=== PATIENT | female | born 1935 | race Caucasian/White ===

== ENCOUNTER 2016-08-27 18:22 | Emergency (ER) | payer MEDICARE, OTHER ==
--- NOTE | 2016-08-27 18:33 | EDPRACDOC ---
- General Information Stated Complaint: N/V Time Seen by Provider: 08/27/16 18:31 Home Medications: Home Medications Atorvastatin Calcium [Lipitor] 40 mg PO DAILY 01/02/15 Acetaminophen [Children's Acetaminophen] 10 ml PO Q4H PRN 08/27/16 Cephalexin Monohydrate [Keflex] 500 mg PO Q6H #28 cap 08/27/16 Chlorhexidine Gluconate [Periogard] 15 ml MM BID 08/27/16 Donepezil HCl 10 mg PO DAILY 08/27/16 Guaifenesin [Robitussin] 10 ml PO Q4H PRN 08/27/16 Lactobacillus Casei/Folic Acid [Restora Rx Capsule] 1 cap PO DAILY 08/27/16 Oxycodone HCl [Oxycodone Immediate Release] 10 mg PO QID 08/27/16 Pentoxifylline [Trental] 400 mg PO TIDWM 08/27/16 Phosp Acid/Dextrose/Fructose [Emetrol Oral Solution] 15 ml PO DIR PRN Vitamin E 400 unit PO BID 08/27/16 Allergies/Adverse Reactions: Allergies Allergy/AdvReac Type Severity Reaction Status Date / Time peach Allergy Edema-Local Verified 08/27/16 18:39 ized Penicillins Allergy Itching Verified 08/27/16 18:39 - History of Present Illness Onset: 10 days HPI: PT FROM [facility] WITH COMPLAINTS OF RIGHT JAW SWELLING, N/V X 10 DAYS, FACILITY STAFF STATES THAT HER JAW IS MORE SWOLLEN AND THEY WERE CONCERNED IT MAY BE "CRACKED" FROM THE VOMITING. PT STATES SHE HAS A CONDITION THAT CAUSES HER JAW TO DETERIORATE AND IT IS "PAPER THIN", PT HERSELF HAS NO COMPLAINTS, DENIES ABD PAIN, HAS HAD "DIARRHEA" WELL BUT NONE TODAY. PT DENIES CP, SOBR , FEVER, CHILLS. Symptoms Occured: Reports: Spontaneous Duration: Reports: Intermittent Emesis: Reports: Food Particles Recent: Denies: Travel, Contact Exposure, Ingestion of ETOH, Ingestion of spoiled food, None, O Pain Severity: None History of: Denies: Abdominal Surgery, UTI, Ectopic, PID, Urolithiasis, Similar Pain (dx) Relevant History of: Denies: Abdominal Surgery, Diabetes, Contact Exposure, Hydrocephalus, HIV, Immunosuppression, Irritable Bowel Disease, Cystic Fibrosis , Lactose Intolerance, None, O Associated Signs & Symptoms: Reports: Nausea, Vomiting, Diarrhea. Denies: Frequency, Vaginal Bleeding, Hematemesis, Anorexia, Melena, Dysuria, Fever, Urgency, Hematuria, Chills, Vaginal Discharge Oral Intake: Normal Urinary Output: Normal ED Past Medical History - History Reviewed Yes Nurses notes reviewed and agree except as marked - Patient Medical History Neurological History: Reports: Dementia Cardiac History: Reports: Hypertension (in the past; no longer treated), Hypercholesterolemia GI/ History: Reports: Pancreatitis ([address] Newell.) Musculoskeletal History: Reports: Arthritis, Osteoarthritis (and Osteoporosis. Degenerative disc disease.) Psychological History: Denies: Substance Use Disorder Surgical History: Reports: Cholecystectomy, Other (Procedure, possibly ERCP, [address] Newell. Gum surgery.) - Family Medical History Reports: Diabetes (Brother), Cancer (Father: prostate cancer), Cardiac Disorders (Mother had CHF but no [place].) - Social Medical History Smoking Status: Former smoker Social History: Denies: Substance Use Disorder ETOH: None Substance Abuse: None Lives In: Assisted Living EDM Review of Systems - Review of Systems Constitutional: negative: Chills, Fever, Fatigue, Weakness Eyes: negative: Blurred Vision, Double Vision Ears: negative: Drainage Throat: negative: Pain Nose: negative: Congestion, Discharge Mouth: Pain (RIGTH JAW) Respiratory: negative: Cough, Shortness of Breath, Wheezing Cardiovascular: negative: Chest Pain, Palpitations Gastrointestinal: Diarrhea, Nausea, Vomiting. negative: Constipation, Pain Genitourinary: negative: Dysuria, Frequency Neurological: negative: Dizziness, Headache, Numbness, Weakness Musculoskeletal: No Symptoms Reported Integumentary: No Symptoms Reported - Physical Exam Constitutional: Alert (Awake), No apparent distress Oriented to: Time, Person, Place Last recorded Vital Signs: Oxygen Pulse Oxygen Saturation O2 Device Oxygen Flow Rate Fraction of Inspired Oxygen ( FIO2) - HEENT Head: Normal ( normocephalic) Eye Exam: Normal (PERRL, EOMI, Sclera white) Oropharynx: Other (SWELLING NOTED ALONG RIGHT JAW) Tympanic Membrane: Normal ENT EAC: Normal TMJ: Normal Nose: No Symptoms Reported (septum midline) Neck: Normal (FROM, trachea at midline) - Respiratory/Cardiovascular Respiratory: Normal - CTA (BBS clear to auscultation without adventitious sounds ) Cardiovascular: Normal (RRR without murmur, gallop or rub) - GI Auscultation: Normal (NABS) Palpation: Normal (Soft,No rebound or guarding, non distended) Tenderness: Diffuse, Mild. negative: Guarding, Rebound, Rigidity Santos's Sign: Negative - Musculoskeletal Back: Normal (Non-Tender) Extremities: Normal (Normal tone, Pulses 2+ No cyanosis or edema, FROM) - Integumentary Skin: Normal, Warm, Dry Lymphatics: Normal (no adenopathy) - Neurologic Memory Impaired: Normal Motor Function: Normal (Normal tone, Pulses 2+ No cyanosis or edema, FROM) Cranial Nerve: Normal (CN II-X11 intact sensation, strength 5/5) Cerebellar: Normal Mood Description: Normal Perception: Normal - Differential Diagnosis Bowel obstruction, Dehydration, Gastritis, Gastroenteritis - Results 08/27/16 19:40 08/27/16 19:40 08/27/16 20:50 Laboratory Results - last 24 hr 08/27/16 08/27/16 08/27/16 19:20 19:40 19:40 WBC 10.4 RBC 4.30 Hgb 12.0 Hct 37.0 MCV 86 MCH 28.0 MCHC 32.6 L RDW 14.3 Plt Count 290 MPV 7.3 L Neut % (Auto) 85.2 H Lymph % (Auto) 9.0 L [place] % (Auto) 4.9 Eos % (Auto) 0.5 Baso % (Auto) 0.4 Absolute Neuts (auto) 8.84 H Absolute Lymphs (auto) 0.94 Sodium 136 L Potassium 3.7 Chloride 100 Carbon Dioxide 26 Anion Gap 14 BUN 10 Creatinine 0.70 Estimated GFR (MDRD) > 60 Glucose 120 H Calculated Osmolality 262 L Calcium 9.1 Corrected Calcium 9.3 Total Bilirubin 0.5 AST 135 H ALT 115 H Alkaline Phosphatase 252 H Total Protein 7.2 Albumin 3.8 Lipase 300 Urine Color Yellow Urine Clarity Clear Urine pH 5.0 Ur Specific [place] 1.005 Urine Protein 1+ H Urine Glucose (UA) Neg Urine Ketones Neg Urine Occult Blood Neg Urine Nitrite Neg Urine Bilirubin Neg Urine Urobilinogen <2.0 Ur Leukocyte Esterase Neg Urine WBC 2-5 Ur Epithelial Cells Occ Hyaline Casts 2-5 H Urine Mucus Occ - Diagnostic Imaging CT FACE Image interpreted by: Radiologist CT MAXILLOFACIAL WITHOUT CONTRAST TECHNIQUE: Multidetector CT imaging of the maxillofacial structures was performed. Multiplanar CT image reconstructions were also generated. A small metallic BB was placed on the right sabianist in order to reliably differentiate right from left. COMPARISON: CT neck 08/30/2011. FINDINGS: There is a heterogeneous destructive bone process demonstrated involving the right mandible and extending from the angle of mandible to the midline. There is severe bone loss with surrounding soft tissue mass or soft tissue swelling. No discrete fluid collection is identified. No definite abscess is identified. There are mildly enlarged lymph nodes in the right angle of mandible and submental regions. No changes are present in this area on the previous CT neck from 08/30/2011. This area was not included on a prior CT head in the interval. This could represent severe osteomyelitis with surrounding myositis/soft tissue infection or it could represent an infiltrating bone tumor or metastasis. The patient is edentulous. The paranasal sinuses are clear. Mastoid air cells are not opacified. Temporomandibular joints appear intact. Additional visualized bony structures appear intact. Calcification in the cervical carotid arteries. Visualized salivary glands appear symmetrical. Pharyngeal, hypopharyngeal, and laryngeal structures are symmetrical. IMPRESSION: Heterogeneous destructive bone process involving the right mandible with surrounding soft tissue mass or swelling. No discrete abscess identified. Differential diagnosis would include severe osteomyelitis with surrounding myositis/soft tissue infection or it could represent an infiltrating bone tumor or metastasis. AAS Image interpreted by: Radiologist HOLLY ABDOMEN ACUTE W/ 1V CHEST COMPARISON: None. FINDINGS: The lungs are clear wiithout focal pneumonia, edema, pneumothorax or pleural effusion. The cardio pericardial silhouette is enlarged. The visualized bony structures of the thorax are intact. Upright film shows no evidence for intraperitoneal free air. There is no evidence for gaseous bowel dilation to suggest obstruction. No unexpected abdominal pelvic calcification. Degenerative changes are seen in the lumbar spine with evidence of lumbar spine compression fracture. IMPRESSION: Negative abdominal radiographs. No acute cardiopulmonary disease. Decision Time to Discharge: 20:50 - Departure Disposition: Home Condition: Stable Final Diagnosis: RIGHT JAW PAIN Instructions: Narcotic Pain Management (ED) Education/Counseling Given To: Patient Education/Counseling Given Regarding: Diagnosis, Treatment, Prognosis, Follow Up Referrals: Pablo Vega DO [Staff Physician] - One Week Prescriptions: New Cephalexin Monohydrate [Keflex] 500 mg PO Q6H #28 cap Continue Atorvastatin Calcium [Lipitor] 40 mg PO DAILY Acetaminophen [Children's Acetaminophen] 10 ml PO Q4H PRN PRN Reason: Pain Vitamin E 400 unit PO BID Phosp Acid/Dextrose/Fructose [Emetrol Oral Solution] 15 ml PO DIR PRN PRN Reason: Nausea Pentoxifylline [Trental] 400 mg PO TIDWM Oxycodone HCl [Oxycodone Immediate Release] 10 mg PO QID Lactobacillus Casei/Folic Acid [Restora Rx Capsule] 1 cap PO DAILY Donepezil HCl 10 mg PO DAILY Chlorhexidine Gluconate [Periogard] 15 ml MM BID Guaifenesin [Robitussin] 10 ml PO Q4H PRN PRN Reason: Cough Additional Instructions: CONTINUE YOUR USUAL MEDICATIONS BEFORE, RETURN TO THE ED FOR ANY WORSENING SYMPTOMS OR CONCERNS.
[2016-08-27] MEDS ORDERED: ONDANSETRON HCL 4 MG/2 ML VIAL IV ONE (18:35)
[2016-08-27] MEDS ORDERED: NS 1,000 ML IV ONE (18:35)
[2016-08-27 18:40] VITALS: BMI 26.4
--- NOTE | 2016-08-27 19:18 | DIRPT ---
CLINICAL DATA: Right jaw swelling and vomiting EXAM: DG ABDOMEN ACUTE W/ 1V CHEST COMPARISON: None. FINDINGS: The lungs are clear wiithout focal pneumonia, edema, pneumothorax or pleural effusion. The cardio pericardial silhouette is enlarged. The visualized bony structures of the thorax are intact. Upright film shows no evidence for intraperitoneal free air. There is no evidence for gaseous bowel dilation to suggest obstruction. No unexpected abdominal pelvic calcification. Degenerative changes are seen in the lumbar spine with evidence of lumbar spine compression fracture. IMPRESSION: Negative abdominal radiographs. No acute cardiopulmonary disease. Electronically Signed By: Joni Zaragoza M.D. On: 08/27/2016 19:15
--- NOTE | 2016-08-27 19:19 | DIRPT ---
CLINICAL DATA: Pain and swelling in the right jaw for 10 days. No known injury. Nausea and vomiting 7 days. EXAM: CT MAXILLOFACIAL WITHOUT CONTRAST TECHNIQUE: Multidetector CT imaging of the maxillofacial structures was performed. Multiplanar CT image reconstructions were also generated. A small metallic BB was placed on the right [place] in order to reliably differentiate right from left. COMPARISON: CT neck 08/30/2011. FINDINGS: There is a heterogeneous destructive bone process demonstrated involving the right mandible and extending from the angle of mandible to the midline. There is severe bone loss with surrounding soft tissue mass or soft tissue swelling. No discrete fluid collection is identified. No definite abscess is identified. There are mildly enlarged lymph nodes in the right angle of mandible and submental regions. No changes are present in this area on the previous CT neck from 08/30/2011. This area was not included on a prior CT head in the interval. This could represent severe osteomyelitis with surrounding myositis/soft tissue infection or it could represent an infiltrating bone tumor or metastasis. The patient is edentulous. The paranasal sinuses are clear. Mastoid air cells are not opacified. Temporomandibular joints appear intact. Additional visualized bony structures appear intact. Calcification in the cervical carotid arteries. Visualized salivary glands appear symmetrical. Pharyngeal, hypopharyngeal, and laryngeal structures are symmetrical. IMPRESSION: Heterogeneous destructive bone process involving the right mandible with surrounding soft tissue mass or swelling. No discrete abscess identified. Differential diagnosis would include severe osteomyelitis with surrounding myositis/soft tissue infection or it could represent an infiltrating bone tumor or metastasis. Electronically Signed By: Javi Braun M.D. On: 08/27/2016 19:17
[2016-08-27 19:32] LABS: LEUKOCYTES/URINE NEG (NEGATIVE); NITRITE/URINE NEG (NEGATIVE); URINE OCCULT BLOOD NEG (NEG/TRACE)
[2016-08-27 19:59] LABS: BLOOD UREA NITROGEN 10 MG/DL (7-17); CALC CORRECTED 9.3 MG/DL (8.4-10.2); CALCIUM 9.1 MG/DL (8.4-10.2); CALCULATED OSMOLALITY 262 MOs/Kg (270-290); CHLORIDE 100 mEq/L (98-107); GLUCOSE 120 MG/DL (70-99); SODIUM LEVEL 136 mEq/L (137-146); TOTAL PROTEIN 7.2 G/DL (6.3-8.2)
[2016-08-27] MEDS ORDERED: OXYCODONE HCL 5 MG TABLET PO ONE (20:10)
[2016-08-27 20:28] LABS: AUTOMATED BASOPHIL 0.4 % (0-2); AUTOMATED EOSINOPHIL 0.5 % (0-5); AUTOMATED MONOCYTE 4.9 % (3-10); AUTOMATED NEUTROPHIL 85.2 % (45-76); MPV 7.3 fL (7.4-10.4)
[2016-08-27 21:40] VITALS: BP 180/70; PULSE 80; TEMP 98
== END 2016-08-27 21:40 ==
LOC: ED 18:22
DX: R68.84 Jaw pain (principal)
CPT/HCPCS: 36415; 70486; 74022; 80053; 81001; 83690; 85025; 96361; 96374; 99283; A9270; J2405; J3490